=== PATIENT | female | born 1940 | race Caucasian/White ===

== ENCOUNTER → 2016-11-11 | Outpatient (CLI) | payer MEDICARE, MEDICAID ==
[~2016-11-11] MED LIST: ACET325T21 PO; CEFU500T PO; CYAN10005 PO; CYAN1TAB29 PO; CYAN500T2 PO; FOLI0.4T2 PO; FOLI20CA PO; GLIM2TAB2 PO; LACT1CAP35 PO; LINA5TAB PO; METF10002 PO; RIVA20TA PO
== END | disposition home or self-care (01) ==
LOC: WOUND 15:00
PROVIDERS: ATTEND Internal Medicine
DX: L89.42 Pressure ulcer of contiguous site of back, buttock and hip, stage 2 (principal); E11.9 Type 2 diabetes mellitus without complications; I89.0 Lymphedema, not elsewhere classified; E44.0 Moderate protein-calorie malnutrition; Z86.718 Personal history of other venous thrombosis and embolism
CPT/HCPCS: G0463; WOU0463

== ENCOUNTER → 2017-08-04 | Outpatient (CLI) | payer MEDICARE, MEDICAID | END | disposition home or self-care (01) | LOC: WOUND 13:46 | PROVIDERS: ATTEND Internal Medicine | DX: E11.622 Type 2 diabetes mellitus with other skin ulcer (principal); L98.411 Non-pressure chronic ulcer of buttock limited to breakdown of skin; L89.43 Pressure ulcer of contiguous site of back, buttock and hip, stage 3; I89.0 Lymphedema, not elsewhere classified; Z86.718 Personal history of other venous thrombosis and embolism; K21.9 Gastro-esophageal reflux disease without esophagitis; E78.5 Hyperlipidemia, unspecified; M19.90 Unspecified osteoarthritis, unspecified site; Z90.710 Acquired absence of both cervix and uterus | CPT/HCPCS: 97597; G0463; WOU0463 ==

== ENCOUNTER → 2017-12-10 | Outpatient (CLI) | payer MEDICARE, MEDICAID | END | disposition home or self-care (01) | LOC: WOUND 14:11 | PROVIDERS: ATTEND Family Medicine | DX: E11.622 Type 2 diabetes mellitus with other skin ulcer (principal); L89.322 Pressure ulcer of left buttock, stage 2; L89.311 Pressure ulcer of right buttock, stage 1; L98.411 Non-pressure chronic ulcer of buttock limited to breakdown of skin; E66.01 Morbid (severe) obesity due to excess calories; I89.0 Lymphedema, not elsewhere classified; E78.5 Hyperlipidemia, unspecified; K21.9 Gastro-esophageal reflux disease without esophagitis; M19.90 Unspecified osteoarthritis, unspecified site; Z86.718 Personal history of other venous thrombosis and embolism; Z90.710 Acquired absence of both cervix and uterus | CPT/HCPCS: G0463; WOU0463 ==

== ENCOUNTER → 2018-03-23 | Outpatient (CLI) | payer MEDICARE, MEDICAID | END | disposition home or self-care (01) | LOC: WOUND 14:22 | PROVIDERS: ATTEND Internal Medicine | DX: E11.622 Type 2 diabetes mellitus with other skin ulcer (principal); L89.322 Pressure ulcer of left buttock, stage 2; L89.311 Pressure ulcer of right buttock, stage 1; L98.411 Non-pressure chronic ulcer of buttock limited to breakdown of skin; E66.01 Morbid (severe) obesity due to excess calories; I89.0 Lymphedema, not elsewhere classified; E78.5 Hyperlipidemia, unspecified; K21.9 Gastro-esophageal reflux disease without esophagitis; M19.90 Unspecified osteoarthritis, unspecified site; Z86.718 Personal history of other venous thrombosis and embolism; Z90.710 Acquired absence of both cervix and uterus | CPT/HCPCS: 97597; 99215 ==

== ENCOUNTER → 2020-06-12 | Outpatient (CLI) | payer MEDICARE, MEDICAID ==
[~2020-06-12] MED LIST changes: +ACET-2274 PO; -ACET325T21 PO; +ALEN70TA3 PO; +CYAN-27 PO; -CYAN10005 PO; -CYAN500T2 PO; +CYAN500T54 PO; -GLIM2TAB2 PO; +GLIM2TAB7 PO; +METF500T17 PO
== END | disposition home or self-care (01) ==
LOC: WOUND 09:06
PROVIDERS: ATTEND Internal Medicine
DX: E11.622 Type 2 diabetes mellitus with other skin ulcer (principal); L89.43 Pressure ulcer of contiguous site of back, buttock and hip, stage 3; L89.150 Pressure ulcer of sacral region, unstageable; L98.491 Non-pressure chronic ulcer of skin of other sites limited to breakdown of skin; L98.411 Non-pressure chronic ulcer of buttock limited to breakdown of skin; E78.5 Hyperlipidemia, unspecified; E21.3 Hyperparathyroidism, unspecified; M81.0 Age-related osteoporosis without current pathological fracture; I89.0 Lymphedema, not elsewhere classified; Z90.710 Acquired absence of both cervix and uterus; Z90.49 Acquired absence of other specified parts of digestive tract; Z86.718 Personal history of other venous thrombosis and embolism; Z88.0 Allergy status to penicillin
CPT/HCPCS: 97597; G0463